=== PATIENT | female | born 1950 | race Two or more races ===

== ENCOUNTER 2023-02-23 08:45 | Inpatient (IN) | payer OTHER ==
[~2023-02-23] VITALS: Ht 149.9 cm; Wt 59.0 kg
[~2023-02-23 08:45] MED LIST: ATORVASTATIN CA10 MG PO; COZAAR25 MG PO; FENOFIBRATE50 MG PO; GLUMETZA500 MG PO; TOPROL XL25 M1 PO; [UNRECOGNIZED DRUG - OTHER]
[2023-02-23] MEDS ORDERED: LOSARTAN-HCTZ1 EAC2 PO (10:59)
[2023-02-23] MEDS ORDERED: HUMALOG100 UNIT/2 (11:01)
[2023-02-23] MEDS ORDERED: AMLODIPINE BESYL5 MG PO (11:02)
[2023-02-23 13:18] LABS: HEMATOCRIT 35.8 % (36.0-45.00); MEAN CELL VOLUME 80.5 fL (80.00-100.00); MEAN CORPUSCULAR HEMOGLOBIN 27.1 pg (27.00-32.0); MEAN CORPUSCULAR HGB CONC 33.7 g/dl (32.0-36.0); PLATELET COUNT 237 K/uL (150-450); RED BLOOD COUNT 4.45 M/uL (4.00-6.00)
[2023-02-23 13:21] LABS: PH,URINE 6.5 (5.0-8.0); URINE APPEARANCE Clear; URINE BILIRRUBIN Negative (NEGATIVE); URINE BLOOD Trace; URINE COLOR Yellow; URINE LEUKOCYTE Trace; URINE NITRATE Negative; URINE PROTEIN 30 (NEGATIVE); URINE UROBILINOGEN 0.2 E.U./dl
[2023-02-23 13:25] LABS: URINE EPITHELIAL CELLS 42.6 uL (0.0-38.8); URINE RBC 19.2 uL (0.0-20.8); URINE WBC 47.1 uL (0.0-23.2)
[2023-02-23 13:47] LABS: URINE GLUCOSE 250 MG/DL (NEGATIVE)
[2023-02-23 13:57] LABS: ALBUMIN 4.2 gm/dL (3.4-5.0); BILIRUBIN TOTAL 0.54 mg/dL (0.3-1.2); CALCIUM 9.6 mg/dL (8.5-10.1); CREATININE SERUM 1.42 mg/dL (0.55-1.02); GFR 36.47; GLOBULINA 3.9 G/DL (2.4-3.5); POTASSIUM 3.66 mEq/L (3.5-5.1); TOTAL PROTEIN 8.1 gm/dL (6.4-8.2)
[2023-02-26] MEDS ORDERED: LANTUS SOL100 UNIT/1 SUBCUTANEO (13:14)
== END 2023-03-02 10:23 | disposition home or self-care (01) | DRG 743 ==
LOC: O/R 02-28 05:10 → OB/GYN 02-28 05:10 → SURG 02-28 07:00 → OB/GYN 02-28 10:36
PROVIDERS: Orthopaedic Surgery Sports Medicine; ADMIT Obstetrics & Gynecology; ATTEND Obstetrics & Gynecology
PROC: 0UT70ZZ Resection of Bilateral Fallopian Tubes, Open Approach (ICD-10-PCS; 2023-02-28)
PROC: 0UT20ZZ Resection of Bilateral Ovaries, Open Approach (ICD-10-PCS; 2023-02-28)
PROC: 0DNU0ZZ Release Omentum, Open Approach (ICD-10-PCS; 2023-02-28)
PROC: 0UN10ZZ Release Left Ovary, Open Approach (ICD-10-PCS; 2023-02-28)
PROC: 0DNW0ZZ Release Peritoneum, Open Approach (ICD-10-PCS; 2023-02-28)
PROC: 0DN80ZZ Release Small Intestine, Open Approach (ICD-10-PCS; 2023-02-28)
PROC: 0UN90ZZ Release Uterus, Open Approach (ICD-10-PCS; 2023-02-28)
PROC: 0UT90ZZ Resection of Uterus, Open Approach (ICD-10-PCS; principal; 2023-02-28 07:00)
DX: D25.2 Subserosal leiomyoma of uterus (principal); N83.311 Acquired atrophy of right ovary; N83.312 Acquired atrophy of left ovary; N80.03 Adenomyosis of the uterus; N72 Inflammatory disease of cervix uteri; Z20.822 Contact with and (suspected) exposure to COVID-19; N73.6 Female pelvic peritoneal adhesions (postinfective)

== ENCOUNTER 2023-02-23 14:52 | Outpatient (CLI) | payer OTHER ==
[~2023-02-23 14:52] MED LIST changes: +AMLODIPINE BESYL5 MG PO; +HUMALOG100 UNIT/2; +LOSARTAN-HCTZ1 EAC2 PO
[2023-02-23 15:28] LABS: INR 0.97; PARTIAL THROMBOPLASTIN TIME 27.8 SECONDS (22.0-34.0); PROTHROMBIN TIME 10.2 SECONDS (9.0-11.5)
== END 2023-02-23 14:53 | disposition home or self-care (01) ==
LOC: LAB 14:52
PROVIDERS: ATTEND Internal Medicine
DX: D68.9 Coagulation defect, unspecified (principal)

== ENCOUNTER 2024-08-24 10:05 | Emergency (ER) | payer OTHER ==
[~2024-08-24] VITALS: Ht 149.9 cm; Wt 63.5 kg
[~2024-08-24 10:05] MED LIST changes: +LANTUS SOL100 UNIT/1 SUBCUTANEO
[2024-08-24] MEDS ORDERED: ORPHENADRINE CITRATE 30 MG/ML AMPUL IM ONE (12:00)
[2024-08-24] MEDS ORDERED: DEXAMETHASONE SODIUM PHOSPHATE 4 MG/ML VIAL IM ONE (12:00)
[2024-08-24] MEDS ORDERED: TRAMADOL HCL 50 MG TABLET PO ONE (12:00)
[2024-08-24] MEDS ORDERED: ORPHENADRINE CITRATE 30 MG/ML AMPUL ONE (12:16)
[2024-08-24] MEDS ORDERED: DEXAMETHASONE SODIUM PHOSPHATE 4 MG/ML VIAL ONE (12:17)
[2024-08-24] MEDS ORDERED: NORFLEX100MG PO (12:21)
[2024-08-24] MEDS ORDERED: 8 HOUR650 MG PO (12:21)
== END 2024-08-24 13:16 | disposition home or self-care (01) ==
LOC: ER 10:31
DX: M54.50 Low back pain, unspecified (principal); I10 Essential (primary) hypertension; E11.9 Type 2 diabetes mellitus without complications; Z79.4 Long term (current) use of insulin; Z88.2 Allergy status to sulfonamides
CPT/HCPCS: 96372; 99282; J1100; J1885